=== PATIENT | male | born 2005 | race Caucasian/White ===

== ENCOUNTER 2023-04-25 22:28 | Emergency (ER) | payer SELFPAY ==
[2023-04-25] MEDS ORDERED: Acetaminophen 325 MG Tab PO ONE (22:55)
[2023-04-25] MEDS ORDERED: Ibuprofen 600 MG Tab PO ONE (22:55)
[2023-04-25] MEDS ORDERED: Ondansetron 4 MG Tab.DIS PO ONE (22:55)
[2023-04-25 23:47] LABS: CORONAVIRUS COVID-19 NAA NEGATIVE (NEGATIVE); INFLUENZA A NAA NEGATIVE (NEGATIVE); RESPIRATORY SYNCYTIAL VIR NAA NEGATIVE (NEGATIVE)
== END 2023-04-26 00:02 | disposition home or self-care (01) ==
LOC: JD.ED 22:28
DX: M94.0 Chondrocostal junction syndrome [Tietze] (principal); Z20.822 Contact with and (suspected) exposure to COVID-19
CPT/HCPCS: 0241U; 93005; 99283; A9270; 93010